=== PATIENT | female | born 1975 | race Caucasian/White ===

== ENCOUNTER 2017-11-10 14:14 | Outpatient (REF) | payer OTHER, SELFPAY | END 2017-11-10 14:15 | LOC: LBN 14:14 | PROVIDERS: Visit Provider Midwife | DX: Z36.85 Encounter for antenatal screening for Streptococcus B (principal); Z34.93 Encounter for supervision of normal pregnancy, unspecified, third trimester | CPT/HCPCS: 87081 ==

== ENCOUNTER 2017-11-18 12:06 | Outpatient (CLI) | payer OTHER, SELFPAY | END 2017-11-18 12:26 | PROVIDERS: PCP Nurse Practitioner Family; Visit Provider Midwife | DX: O09.513 Supervision of elderly primigravida, third trimester (principal); Z3A.36 36 weeks gestation of pregnancy | CPT/HCPCS: 59025 ==

== ENCOUNTER 2017-11-20 02:11 | Outpatient (CLI) | payer OTHER, SELFPAY ==
--- NOTE | 2017-11-20 10:29 | DI.US_ITS ---
SYMPTOMS/DIAGNOSIS: ELDERLY PRIMIGRAVIDA IN THIRD TRIMESTER OB ULTRASOUND: Many abnormalities cannot be diagnosed. A normal exam does not exclude a congenital anomaly. Radiology No. [id number] LMP: Exam Date: 11/20/17 [facility] wks days on EDC ([facility]) 12/15/17 Confirmed: HISTORY: ---- PREDICTED GESTATIONAL AGE NUMBER 36+3 weeks with a range of 35+3 weeks to 37+3 weeks. 1 Determined by___1STUS___LMP___HISTORY PLACENTA PRESENTATION Grade II-III Cephalic_X__ Anterior_X__Posterior___ Breech____ Right Left Transverse(head right___ Fundal___Low-lying___Previa___ Transverse(head left___ Varying BIOMETRY AMNIOTIC FLUID BPD: 94 mm 38 weeks Normal HC: 343 mm 39+4 weeks AC: 339 mm 37+5 weeks FL: 75 mm 38+1 weeks AMNIOTIC FLUID INDEX >26 WK CRL: mm weeks Cisterna Magna: mm CI: 85 RUQ: 2.8 LUQ: 1.9 Cerebellum: cm EFW: 3404 grams Percentile: 91st RLQ: 3.3 LLQ: 3.9 Total: 12.0 cm Composite AGE= 38+3 wks EDC by US: 12/01/17 BIOPHYSICAL PROFILE ANATOMY IDENTIFIED SCORE 0/2 Heart: 4-Chamber___Rate:BPM 160 LVOT: RVOT: Amniotic Fluid(>2cms)____ Stomach: Kidneys: Respirations (>30 secs) Bladder: Post. Fossa: Body Flex/Extension 3 vessel cord: Ventricles: cord insertion: Lips:____ Extremity Flex/Extension spinal morphology: Nose: Total Score= Palate: NS=not seen COMMENTS: The fetus is in cephalic position. The placenta is anterior. The biometric measurements correspond to 38 weeks 3 days. This is two weeks greater than expected based on previous dating. No abnormalities are identified. The amniotic fluid index appears normal at 12.0. The estimated weight is 3404 g, corresponding to the 91st percentile. IMPRESSION: size is measuring two weeks larger than dates.
== END 2017-11-20 02:31 ==
PROVIDERS: PCP Nurse Practitioner Family; Visit Provider Midwife
DX: O09.513 Supervision of elderly primigravida, third trimester (principal)
CPT/HCPCS: 76816

== ENCOUNTER 2017-11-21 11:06 | Outpatient (CLI) | payer OTHER, SELFPAY | END 2017-11-21 11:26 | PROVIDERS: PCP Nurse Practitioner Family; Visit Provider Advanced Practice Midwife | DX: O09.513 Supervision of elderly primigravida, third trimester (principal); Z3A.36 36 weeks gestation of pregnancy | CPT/HCPCS: 59025 ==

== ENCOUNTER 2017-11-25 10:55 | Outpatient (CLI) | payer OTHER, SELFPAY | END 2017-11-25 11:15 | PROVIDERS: PCP Nurse Practitioner Family; Visit Provider Midwife | DX: O09.513 Supervision of elderly primigravida, third trimester (principal); Z3A.37 37 weeks gestation of pregnancy | CPT/HCPCS: 59025 ==

== ENCOUNTER 2017-11-28 08:20 | Outpatient (CLI) | payer OTHER, SELFPAY | END 2017-11-28 08:40 | PROVIDERS: PCP Nurse Practitioner Family; Visit Provider Advanced Practice Midwife | DX: O09.513 Supervision of elderly primigravida, third trimester (principal); Z3A.38 38 weeks gestation of pregnancy | CPT/HCPCS: 59025 ==

== ENCOUNTER 2017-11-28 14:23 | Outpatient (CLI) | payer OTHER, SELFPAY | END 2017-11-28 14:43 | PROVIDERS: PCP Nurse Practitioner Family; Visit Provider Advanced Practice Midwife | DX: O09.513 Supervision of elderly primigravida, third trimester (principal); Z3A.38 38 weeks gestation of pregnancy ==

== ENCOUNTER 2017-12-02 11:06 | Outpatient (CLI) | payer OTHER, SELFPAY | END 2017-12-02 11:26 | PROVIDERS: PCP Nurse Practitioner Family; Visit Provider Advanced Practice Midwife | DX: O99.513 Diseases of the respiratory system complicating pregnancy, third trimester (principal); Z3A.38 38 weeks gestation of pregnancy | CPT/HCPCS: 59025 ==

== ENCOUNTER 2017-12-03 08:35 | Outpatient (CLI) | payer OTHER, SELFPAY | END 2017-12-03 08:55 | PROVIDERS: PCP Nurse Practitioner Family; Visit Provider Midwife | DX: O09.513 Supervision of elderly primigravida, third trimester (principal); Z3A.38 38 weeks gestation of pregnancy ==

== ENCOUNTER 2017-12-05 08:54 | Outpatient (CLI) | payer OTHER, SELFPAY | END 2017-12-05 09:14 | PROVIDERS: PCP Nurse Practitioner Family; Visit Provider Advanced Practice Midwife | DX: O09.513 Supervision of elderly primigravida, third trimester (principal); Z3A.38 38 weeks gestation of pregnancy | CPT/HCPCS: 59025 ==

== ENCOUNTER 2017-12-09 08:20 | Outpatient (CLI) | payer OTHER, SELFPAY | END 2017-12-09 08:40 | PROVIDERS: PCP Nurse Practitioner Family; Visit Provider Midwife | DX: O09.513 Supervision of elderly primigravida, third trimester (principal); Z3A.39 39 weeks gestation of pregnancy | CPT/HCPCS: 59025 ==

== ENCOUNTER 2017-12-12 09:30 | Outpatient (REF) | payer OTHER, SELFPAY | END 2017-12-12 09:50 | LOC: BCD 09:30 | PROVIDERS: PCP Nurse Practitioner Family; Visit Provider Advanced Practice Midwife | DX: O09.513 Supervision of elderly primigravida, third trimester (principal); Z3A.39 39 weeks gestation of pregnancy | CPT/HCPCS: 59025 ==

== ENCOUNTER 2017-12-16 11:59 | Inpatient (IN) | payer OTHER, SELFPAY ==
[2017-12-16] MEDS: Lactated Ringers 1,000 ML 500 ML IV (13:15)
[2017-12-16 14:08] LABS: HCT 42.9 % (36.0-46.0); HGB 14.5 g/dL (12.0-15.5); Mean Corp. HGB Concentration 33.8 g/dL (32.0-36.0); Mean Corpuscular Hemoglobin 31.9 pg (27.0-33.0); Mean Corpuscular Volume 94.3 fL (80-95); Mean Platelet Volume 11.2 fL (8.0-11.0); Platelet Count 156 x1000/uL (130-400); RBC 4.55 m/cumm (4.00-5.20); RBC Distribution Width 14.8 % (11.7-14.6); White Blood Cell Count 14.32 k/cumm (4.4-10.8)
[2017-12-16] MEDS: fentaNYL 100 MCG/2 ML VIAL EP (14:54)
[2017-12-16] MEDS: Bupivacaine 0.25% Pres-Free 10 ML VIAL EP (14:56)
[2017-12-16] MEDS: Bupivacaine 0.25% Pres-Free 30 ML VIAL (16:18)
[2017-12-16] MEDS: Lactated Ringers 1,000 ML 150 ML IV (17:47)
[2017-12-17] MEDS: Normal Saline Flush 10 ML SYR IVP ×2 (01:58→06:02)
--- NOTE | 2017-12-17 08:19 | PLAC_PTH ---
PATIENT: Christina Jones LOC: OBS U#:[id number] AGE/SX: 42/F ROOM: OBS.305 RE12/16/[address]: Karen Calhoun : 1975 BED: A DIS: 12/19/2017 SPEC #: [id number] RECD: 12/18/17 11:53 STATUS: JARONJody REQ #: [id number] ANGELIC: 12/17/17 08:[address]: Mina Cm DEPT: Surgical Specimen RECD BY: Emma Sampson ENTERED: 12/18/17 12:02 SP TYPE: PLAC OTHR DR: Karen Calhoun Kathryn Tissues: CHROMOSOME ANALYSIS PROFILE Procedures: CHROMOSOME ANALYSIS 15-20 CELLS CHROMOSOME ANALYSIS TISSUE CULTURE Comments: [id number]
[2017-12-17] MEDS: Oxytocin 10 UNITS/ML VIAL IM (08:30)
[2017-12-17] MEDS: Lidocaine 1% Pres-Free 5 ML VIAL 10 ML IJ (08:40)
[2017-12-17] MEDS: Ibuprofen 600 MG TAB PO ×2 (11:18→23:00)
[2017-12-17] MEDS: Hamamelis Leaf/Glycerin 100 EACH BOX PR (11:19)
[2017-12-18] MEDS: Ibuprofen 600 MG TAB PO ×2 (05:40→17:02)
[2017-12-18 06:57] LABS: HCT 28.8 % (36.0-46.0); HGB 9.6 g/dL (12.0-15.5); Mean Corp. HGB Concentration 33.3 g/dL (32.0-36.0); Mean Corpuscular Hemoglobin 31.9 pg (27.0-33.0); Mean Corpuscular Volume 95.7 fL (80-95); Mean Platelet Volume 11.6 fL (8.0-11.0); Platelet Count 124 x1000/uL (130-400); RBC 3.01 m/cumm (4.00-5.20); RBC Distribution Width 14.5 % (11.7-14.6); White Blood Cell Count 11.99 k/cumm (4.4-10.8)
[2017-12-19] MEDS: Ibuprofen 600 MG TAB PO (04:45)
== END 2017-12-19 21:07 | disposition home or self-care (01) | DRG 807 ==
PROVIDERS: Admitting Provider Midwife; PCP Nurse Practitioner Family; Visit Provider Midwife
DX: O48.0 Post-term pregnancy (principal); Z37.0 Single live birth; O63.1 Prolonged second stage (of labor); O70.1 Second degree perineal laceration during delivery; Z3A.40 40 weeks gestation of pregnancy; O99.824 Streptococcus B carrier state complicating childbirth; O90.81 Anemia of the puerperium; D64.9 Anemia, unspecified; O26.893 Other specified pregnancy related conditions, third trimester; Z67.11 Type A blood, Rh negative
CPT/HCPCS: 36415; 85027; 85461; 86850; 86900; 86901; 90384; 85460; 88233; 88262; E0602; G0378; J2540; J2590; J2790; J3010; J3490

== ENCOUNTER 2017-12-20 10:33 | Outpatient (CLI) | payer OTHER, SELFPAY | END 2017-12-20 10:53 | PROVIDERS: PCP Nurse Practitioner Family; Visit Provider Midwife | DX: Z34.93 Encounter for supervision of normal pregnancy, unspecified, third trimester (principal) | CPT/HCPCS: 36415; 86850; 86870 ==

== ENCOUNTER 2018-03-04 11:12 | Outpatient (REF) | payer OTHER, SELFPAY ==
--- NOTE | 2018-03-04 10:15 | PAPFT_PTH ---
PATIENT: Christina Jones LOC: NCN U#:[id number] AGE/SX: 42/F ROOM: RE03/04/[address]: Zehra Vieyra : 1975 BED: DIS: 03/04/2018 SPEC #: [id number] RECD: 03/04/18 12:57 STATUS: PARISH REQ #: [id number] ANGELIC: 03/04/18 10:[address]: Zehra Vieyra DEPT: [facility] Cytology RECD BY: Emma Sampson ENTERED: 03/04/18 12:57 SP TYPE: PAPFT OTHR DR: Karen Calixto Tissues: 1 - CX/ENDOCX FOR PAP SMEARS Procedures: PAP THIN PREP/[facility] Screening HPV DNA PROBE Comments: [id number]
[2018-03-04 23:00] LABS: Cholesterol 213 mg/dL (50-200); HDL Cholesterol 59 mg/dL (40-60); LDL CHOLESTEROL 135 mg/dL (<100); Triglyceride 134 mg/dL (30-150)
== END 2018-03-04 11:32 ==
LOC: NCHCN 11:12
PROVIDERS: PCP Nurse Practitioner Family; Visit Provider Nurse Practitioner
DX: Z00.00 Encounter for general adult medical examination without abnormal findings (principal); Z13.220 Encounter for screening for lipoid disorders; Z12.4 Encounter for screening for malignant neoplasm of cervix; Z11.51 Encounter for screening for human papillomavirus (HPV); Z01.419 Encounter for gynecological examination (general) (routine) without abnormal findings
CPT/HCPCS: 80061; 83721; 88142; 87624

== ENCOUNTER 2019-05-12 01:41 | Outpatient (CLI) | payer OTHER, SELFPAY ==
--- NOTE | 2019-05-12 | DI.MAMMO_ITS ---
EXAM: US BREAST RT COMPLETE Diagnostic bi mammo CLINICAL HISTORY: LUMP RT BREAST N63.10 TECHNIQUE: Ultrasound performed using standard protocol. COMPARISON: No exams were available for comparison FINDINGS: Bilateral mammogram: The breasts are composed of scattered fibroglandular densities, breast density category B. No suspicious masses or suspicious microcalcifications are seen. Right breast ultrasound: The inferior portion of the right breast was scanned in the area of the brent ent's concern. No cyst or mass is seen. There are no dilated ducts or evidence of skin edema. IMPRESSION: BI-RADS category 1, breast density category B, negative mammogram and negative right breast ultrasoun d. Annual screening mammography is recommended. DATA REPOSITORY:
== END 2019-05-12 02:01 ==
PROVIDERS: PCP Nurse Practitioner Family; Visit Provider Nurse Practitioner Family
DX: N63.10 Unspecified lump in the right breast, unspecified quadrant (principal)
CPT/HCPCS: 76642; 77062; 77066; G0279

== ENCOUNTER 2020-05-24 03:58 | Outpatient (CLI) | payer OTHER, SELFPAY ==
[2020-05-24 09:36] LABS: TSH (W/Ref FT4) 2.55 uIU/mL (0.36-3.74)
[2020-05-24 18:15] LABS: FSH 18.1 mIU/mL (See Note); LH 12.5 mIU/mL (See Note)
[2020-05-24 18:18] LABS: Prolactin 7.1 ng/mL (See Table)
[2020-05-25 12:58] LABS: Antimullerian Hormone 0.19 ng/mL (0.03-5.5)
== END 2020-05-24 03:59 | disposition home or self-care (01) ==
LOC: LBO 03:59
PROVIDERS: PCP Nurse Practitioner Family; Visit Provider Nurse Practitioner Women's Health
DX: N97.8 Female infertility of other origin (principal); Z31.9 Encounter for procreative management, unspecified; N91.2 Amenorrhea, unspecified
CPT/HCPCS: 36415; 83001; 83002; 83520; 84146; 84443

== ENCOUNTER 2020-08-09 04:31 | Outpatient (CLI) | payer OTHER, SELFPAY ==
[2020-08-09 15:07] LABS: Abs Immature Grans 0.04 10^3/uL (0.0-0.06); Absolute Basophil Count 0.04 10^3/uL (0.0-0.2); Absolute Eosinophil Count 0.08 10^3/uL (0.0-0.7); Absolute Lymphocyte Count 1.79 10^3/uL (1.2-3.4); Absolute Monocyte Count 0.75 10^3/uL (0.1-0.8); Basophils % 0.3; Eosinophils % 0.7; HCT 43.7 % (36.0-46.0); HGB 15.3 g/dL (11.2-15.7); Immature Grans % 0.3; Lymphocytes % 14.8; MCH 31.4 pg (27.0-33.0); MCV 89.5 fL (80-95); MPV 11.5 fL (8.0-11.0); Monocytes % 6.2; Neutrophils % 77.7; Nucleated RBC 0 %; Platelet Count 173 10^3/uL (130-400); RBC 4.88 10^6/uL (3.93-5.22); RDW 12.2 % (11.7-14.6); RDW-SD 40.2 fL; WBC 12.07 10^3/uL (4.4-10.8)
[2020-08-09 15:11] LABS: Absolute Neutrophil Count 9.38 10^3/uL (1.2-6.7)
[2020-08-09 15:59] LABS: TSH (W/Ref FT4) 1.84 uIU/mL (0.36-3.74)
[2020-08-10 09:49] LABS: Hepatitis C Ab w Rflx HCV PCR Negative (Negative)
[2020-08-10 10:03] LABS: HIV-1/2 Ag & Ab Screen Negative (Negative)
[2020-08-10 10:06] LABS: Varicella IgG Antibody Positive (See Note)
[2020-08-10 10:09] LABS: Rubella IgG Ab (UVM) Positive (See Note)
[2020-08-10 11:23] LABS: Hepatitis B Surface Ag Negative (Negative)
[2020-08-11 10:30] LABS: Syphilis Total Ab w/Reflex Nonreactive (Nonreactive)
== END 2020-08-09 04:32 | disposition home or self-care (01) ==
LOC: LBO 04:31
PROVIDERS: PCP Nurse Practitioner Family; Visit Provider Advanced Practice Midwife
DX: Z34.91 Encounter for supervision of normal pregnancy, unspecified, first trimester (principal); Z11.4 Encounter for screening for human immunodeficiency virus [HIV]; Z11.59 Encounter for screening for other viral diseases; Z01.84 Encounter for antibody response examination; Z3A.11 11 weeks gestation of pregnancy
CPT/HCPCS: 36415; 86787; 86803; 86850; 86900; 86901; 87340; 87389; 84443; 85025; 86762; 86780

== ENCOUNTER 2020-08-09 20:01 | Outpatient (REF) | payer OTHER, SELFPAY ==
[2020-08-09 17:00] LABS: *AMPHETAMINES SCREEN URINE Negative (Negative); *BARBITURATES SCREEN URINE Negative (Negative); *BENZODIAZEPINES SCREEN URINE Negative (Negative); Cannabinoids THC Negative (Negative); Cocaine Screen,Urine Negative (Negative); METHADONE URINE SCREEN Negative (Negative); OPIATES URINE SCREEN Negative (Negative); Tricyclic Antidepressants Negative (Negative)
[2020-08-10 14:37] LABS: Chlamydia Result Negative (Negative); GC Result Negative (Negative)
[2020-08-16 07:18] LABS: Buprenorphine Negative ng/mL (Cutoff: 5.0); Norbuprenorphine Negative ng/mL (Cutoff: 2.5)
== END 2020-08-09 20:02 | disposition home or self-care (01) ==
LOC: LBN 20:01
PROVIDERS: PCP Nurse Practitioner Family; Visit Provider Advanced Practice Midwife
DX: Z34.91 Encounter for supervision of normal pregnancy, unspecified, first trimester (principal); Z11.3 Encounter for screening for infections with a predominantly sexual mode of transmission
CPT/HCPCS: 80307; 87491; 87591; 87086

== ENCOUNTER 2020-12-06 00:44 | Outpatient (CLI) | payer OTHER, SELFPAY ==
[2020-12-06 09:44] LABS: HCT 40.3 % (36.0-46.0); HGB 13.6 g/dL (11.2-15.7); MCH 31.5 pg (27.0-33.0); MCHC 33.7 % (32.0-36.0); MCV 93.3 fL (80-95); MPV 10.8 fL (8.0-11.0); Platelet Count 142 10^3/uL (130-400); RBC 4.32 10^6/uL (3.93-5.22); RDW 12.9 % (11.7-14.6); RDW-SD 44.1 fL; WBC 8.89 10^3/uL (4.4-10.8)
[2020-12-06 11:20] LABS: Glucose,1 Hr (Glucola) 132 mg/dL (80-140)
== END 2020-12-06 00:45 | disposition home or self-care (01) ==
LOC: LBO 00:45
PROVIDERS: Advanced Practice Midwife; PCP Nurse Practitioner Family; Visit Provider Advanced Practice Midwife
DX: O36.0130 Maternal care for anti-D [Rh] antibodies, third trimester, not applicable or unspecified (principal); O09.523 Supervision of elderly multigravida, third trimester; Z3A.28 28 weeks gestation of pregnancy
CPT/HCPCS: 36415; 82950; 85027; 86850; 90384

== ENCOUNTER 2021-02-05 10:50 | Outpatient (CLI) | payer OTHER, SELFPAY ==
[2021-02-05 11:53] VITALS: BP 126/68; PULSE 72; TEMP 36.3
--- NOTE | 2021-02-05 12:46 | W.OBNST ---
Date of service: 02/05/21 Time of Service: 12:46 NST Evaluation Reason for NST Reasons for Nonstress Test: ADVANCED MATERNAL AGE Gestational Age Gestational Age in Weeks and Days: 37 Weeks and 1Days Test and Monitor Explained Test/Monitor Explained: Test Explained, Monitor Explained and Patient Verbalized Understanding Vital Signs Blood Pressure: 126/68 Pulse: 72 Temperature: 97.4 F NST Information Date on Monitor: 02/05/21 Time on Monitor: 11:46 Date off Monitor: 02/05/21 Time off Monitor: 12:25 Total Time on Monitor: 39 NST Interventions: None Contraction Frequency: none NST Evaluation Patient States Movement: Present FHR Baseline: 135 Variability: Moderate 6-25 bpm Accelerations: 15x15 Decelerations: None NST Results: Reactive Note NST Note Note: NST for AMA >40, returns this Friday for repeat NST Plan for NST/KATIE the following week (38 wks) NST Reviewed and Verified by: Adelia Hayden
[2021-02-05 12:47] VITALS: BP 126/68; PULSE 72; TEMP 36.3
== END 2021-02-05 12:30 | disposition home or self-care (01) ==
PROVIDERS: PCP Nurse Practitioner Family; Visit Provider Advanced Practice Midwife
DX: O09.523 Supervision of elderly multigravida, third trimester (principal); Z3A.37 37 weeks gestation of pregnancy
CPT/HCPCS: 59025

== ENCOUNTER 2021-02-05 16:36 | Outpatient (REF) | payer OTHER, SELFPAY ==
[2021-02-05 18:27] LABS: *AMPHETAMINES SCREEN URINE Negative (Negative); *BARBITURATES SCREEN URINE Negative (Negative); *BENZODIAZEPINES SCREEN URINE Negative (Negative); Cannabinoids THC Negative (Negative); Cocaine Screen,Urine Negative (Negative); METHADONE URINE SCREEN Negative (Negative); OPIATES URINE SCREEN Negative (Negative)
[2021-02-05 18:31] LABS: Tricyclic Antidepressants Negative (Negative)
[2021-02-11 10:28] LABS: Buprenorphine Negative ng/mL (Cutoff: 5.0)
== END 2021-02-05 16:37 | disposition home or self-care (01) ==
LOC: LBN 16:36
PROVIDERS: PCP Nurse Practitioner Family; Visit Provider Advanced Practice Midwife
DX: O09.513 Supervision of elderly primigravida, third trimester
CPT/HCPCS: 80307; 87081

== ENCOUNTER 2021-02-09 10:06 | Outpatient (CLI) | payer OTHER, SELFPAY ==
[2021-02-09 10:29] VITALS: BP 102/73; PULSE 67; TEMP 36.9
[2021-02-09 10:30] VITALS: BP 102/73; PULSE 67
--- NOTE | 2021-02-09 10:39 | W.OBNST ---
Date of service: 02/09/21 Time of Service: 10:39 NST Evaluation Reason for NST Reasons for Nonstress Test: ADVANCED MATERNAL AGE Gestational Age Gestational Age in Weeks and Days: 37 Weeks and 5Days Test and Monitor Explained Test/Monitor Explained: Test Explained, Monitor Explained and Patient Verbalized Understanding Vital Signs Blood Pressure: 102/73 Pulse: 67 Temperature: 98.4 F Urine Results Urine Protein: Negative Urine Ketones: Negative Urine Glucose: Negative Urine Blood: Negative NST Information Date on Monitor: 02/09/21 Time on Monitor: 10:07 NST Evaluation Patient States Movement: Present FHR Baseline: 150 Variability: Moderate 6-25 bpm Accelerations: 15x15 Decelerations: None NST Results: Reactive Note NST Note Note: Christina presents for NST due to AMA at term. No concerns. NST is reactive and reassuring. Will return in 1 week for NST and KATIE. NST Reviewed and Verified by: Louise Summers
[2021-02-09 10:40] VITALS: BP 102/73; PULSE 67; TEMP 36.9
== END 2021-02-09 10:45 | disposition home or self-care (01) ==
LOC: BCD 10:06 → OBS 10:12
PROVIDERS: PCP Nurse Practitioner Family; Visit Provider Advanced Practice Midwife
DX: O09.523 Supervision of elderly multigravida, third trimester (principal); Z3A.37 37 weeks gestation of pregnancy
CPT/HCPCS: 59025

== ENCOUNTER 2021-02-15 06:54 | Outpatient (CLI) | payer OTHER, SELFPAY ==
[2021-02-15 11:24] VITALS: BP 119/64; PULSE 67; TEMP 36.9
[2021-02-15 11:44] VITALS: BP 119/64; PULSE 67
--- NOTE | 2021-02-15 14:18 | W.OBNST ---
Date of service: 02/15/21 Time of Service: 14:19 NST Evaluation Reason for NST Reasons for Nonstress Test: ADVANCED MATERNAL AGE Gestational Age Gestational Age in Weeks and Days: 38 Weeks and 4Days Test and Monitor Explained Test/Monitor Explained: Test Explained, Monitor Explained and Patient Verbalized Understanding Vital Signs Blood Pressure: 119/64 Pulse: 67 Temperature: 98.4 F NST Information Date on Monitor: 02/15/21 Time on Monitor: 11:25 Date off Monitor: 02/15/21 Time off Monitor: 12:00 Total Time on Monitor: 35 NST Interventions: None NST Evaluation Patient States Movement: Present FHR Baseline: 145 Variability: Moderate 6-25 bpm Accelerations: 15x15 Decelerations: None NST Results: Reactive Note KATIE Results of KATIE: KATIE=21 cm, cephalic presentation, fundal placenta NST Note Note: Next NST scheduled for 02/22, IOL for AMA scheduled for 02/26 NST Reviewed and Verified by: Adelia Hayden
[2021-02-15 14:20] VITALS: BP 119/64; PULSE 67; TEMP 36.9
== END 2021-02-15 12:23 | disposition home or self-care (01) ==
LOC: BCD 06:54 → OBS 11:22
PROVIDERS: PCP Nurse Practitioner Family; Visit Provider Advanced Practice Midwife
DX: O09.523 Supervision of elderly multigravida, third trimester (principal); Z3A.38 38 weeks gestation of pregnancy
CPT/HCPCS: 59025

== ENCOUNTER 2021-02-22 07:29 | Outpatient (CLI) | payer OTHER, SELFPAY ==
[2021-02-22 12:44] VITALS: BP 143/72; PULSE 75; TEMP 37.1
[2021-02-22 13:03] VITALS: BP 143/72; PULSE 75
[2021-02-22 13:53] VITALS: BP 143/72; PULSE 75; TEMP 37.1
--- NOTE | 2021-02-22 13:53 | W.OBNST ---
Date of service: 02/22/21 Time of Service: 13:53 NST Evaluation Reason for NST Reasons for Nonstress Test: ADVANCED MATERNAL AGE Gestational Age Gestational Age in Weeks and Days: 39 Weeks and 4Days Test and Monitor Explained Test/Monitor Explained: Test Explained, Monitor Explained and Patient Verbalized Understanding Vital Signs Blood Pressure: 143/72 Pulse: 75 Temperature: 98.8 F NST Information Date on Monitor: 02/22/21 Time on Monitor: 12:48 Date off Monitor: 02/22/21 Time off Monitor: 13:29 Total Time on Monitor: 41 NST Interventions: PO Hydration NST Evaluation Patient States Movement: Present FHR Baseline: 145 Variability: Moderate 6-25 bpm Accelerations: 15x15 Decelerations: None NST Results: Reactive Note NST Note Note: Cvx 2/50% vtx -3 intact membranes IOL for AMA scheduled for 02/26 NST Reviewed and Verified by: Adelia Hayden
== END 2021-02-22 13:37 | disposition home or self-care (01) ==
LOC: BCD 07:36 → OBS 12:42
PROVIDERS: PCP Nurse Practitioner Family; Visit Provider Advanced Practice Midwife
DX: O09.523 Supervision of elderly multigravida, third trimester (principal); Z3A.39 39 weeks gestation of pregnancy
CPT/HCPCS: 59025

== ENCOUNTER 2021-02-26 08:55 | Inpatient (IN) | payer OTHER, SELFPAY ==
[2021-02-27] VITALS (87 sets, daily range): BP systolic 112–159; BP diastolic 55–73; PULSE 60–78; RESP 16–18; TEMP 36.8–37.1; O2SAT 96–100; BMI 33.0
[2021-02-27 10:18] LABS: Source Nasal/Nares
--- NOTE | 2021-02-27 11:52 | HPE_ITS ---
Date of service: 02/27/21 Time of Service: 10:52 Assessment and Plan Assessment and plan (1) Advanced maternal age during : Status: Acute (2) 40 weeks gestation of : Status: Acute (3) Encounter for induction of labor: Status: Acute Assessment and plan: A: 45 yo @ 40+3 wks Scheduled IOL today for AMA Category 1 tracing, KATIE was 21 on 02/15 GBS+, Rh neg, rec'ed RhoGam at 28 wks Low risk for SD, moderate risk for PPH d/t induction head not in pelvis but in LLQ and OP upon admission, hand above head near cvx P: Consult with Dr. Christensen, will hold misoprostel at this time Pt to ambulate, recheck position in 2-3 hrs Once position confirmed cephalic, will initiate cervical ripening Plan epidural and PCN prophylaxis when labor starts OB-HPI Labor/Delivery History of Present Illness Reason for Visit: Induction for Advanced Maternal Age at term Chief Complaint: Scheduled Induction of Labor Indication for Induction: Other (AMA, age 45, now 40+2 wks). MANUEL Calculator Estimated Delivery Date Method Current WG Current Estimate 02/25/21 LMP (Certain) 40w 2d Other Estimates 02/25/21 Ultrasound #1 40w 2d History of Present Expected Delivery Route/Plan - CNM FOB/ - Fadi Jones planning for regional anesthesia BG- Mary James GBS POSITIVE, plan PCN prophylaxis in labor Specific Issues/Plan 1. AMA (age 45), offered level 2 sono w/MFM consult at [facility], pt will discuss with : declines this offer 09/06/20 1a. Discussed early IOL. 2. First child w/question of Downs (likely), high functioning with no clear markers; ?mosaicism.-Declines [place] testing: lab is out of network, tests not covered. Declination form signed. 2a. Known CF carrier negative. Declines [facility] screen 2b. considering SMA but due to out of network she will discuss with . Update: declined 5. Is COVID vaccinated 6. May have had PPH with first , will check delivery record 6a. Reviewed delivery record-EBL 400 cc. Christina reports large clot passed later I.V. access in labor discussed. 7. Rh neg, RhoGam at 28 wks- received 12/06/20 8. Complete previa, no bleeding, precautions reviewed including pelvic rest, repeat US at 28 weeks- previa: RESOLVED 12/13, tip of posterior placenta 3.8 cm from os 9. Was thinking tubal ligation if needed scheduled C/S, otherwise plan is vasectomy. Declines appt for TL consent 01/03 9a. At 35 wk visit pt requests to sign BTL consent form just in case of emergency C/S. Done, copy given to pt. Review of Systems All systems reviewed & are unremarkable except as noted in HPI and below Constitutional Constitutional: Reports system reviewed and no additional complaints, except as documented Eyes Eyes: Reports system reviewed and no additional complaints, except as documented ENT Ears, Nose, Mouth, and Throat: Reports system reviewed and no additional complaints, except as documented Cardiovascular Cardiovascular: Reports system reviewed and no additional complaints, except as documented Respiratory Respiratory: Reports system reviewed and no additional complaints, except as documented Gastrointestinal Gastrointestinal: Reports system reviewed and no additional complaints, except as documented Genitourinary Genitourinary: Reports system reviewed and no additional complaints, except as documented Musculoskeletal Musculoskeletal: Reports system reviewed and no additional complaints, except as documented Comments: painless enlargement on left thigh, pre-dates Integumentary/Breasts Skin/Breast: Reports system reviewed and no additional complaints, except as documented Neurologic Neurologic: Reports system reviewed and no additional complaints, except as documented Psychiatric Psychiatric: Reports system reviewed and no additional complaints, except as documented PFSH All Active Problems (Updated 02/27/21 @ 12:02 by Adelia Hayden) Encounter for induction of labor (Acute) 40 weeks gestation of (Acute) Positive GBS test (Acute) Placenta previa (Acute) (Acute) Advanced maternal age during (Acute) Infertility (Acute) Rh negative state in antepartum period (Acute 05/19/17) Mass of left thigh (Acute) Medical History (Updated 02/27/21 @ 12:02 by Adelia Hayden) 11 weeks gestation of Amenorrhea Social History (Updated 11/27/17 @ 09:52 by Erika Nugent LPN) Smoking/Tobacco Use Status: Never Smoking risk assessment performed?: Yes Alcohol Intake: never Substance use type: does not use Household members: spouse current occupation: homemaker Pets and animals: Yes (2 dogs) Pets and animals: dog(s) Do you think of yourself as: straight/heterosexual Current gender identity: female [place]/Sabianism: Church Special lee ann needs: No Female Reproductive History Menstrual control method: none History History 2 Para 1 Hx # Term Pregnancies 1 Multiple births 0 Hx # Pregnancies 0 Ectopic pregnancies 0 AB induced 0 Hx Number of Living Children 1 AB spontaneous 0 Past Pregnancies Del. Date GA/Weeks # Outcome Route Wgt Sex Labor Lgth Anesthes ia Location Prov Complic 12/17/17 40 No Successful vaginal 8 lb Male 24 hrs regional [facility] - [facility] ([place]) Delivery Date: 12/17/17 long labor but pushed only 1 hr, epidural, pit aug, heavy bleeding, 2nd degree tear, Storm Lyman; GBS treated with antibiotics. Louise Dixon Allergies and Home Medications Allergies Allergy/AdvReac Type Severity Reaction Status Date / Time No Known Allergies Allergy Unverified 02/05/21 11:23 Home Medications Medication Instructions Recorded Confirmed Type [id number] acid 1 ea PO DAILY 04/17/17 02/22/21 History [ Multi Tablet] Exam Physical Exam Vital signs: Temp Pulse Resp BP Pulse Ox 98.4 F 64 16 124/70 99 02/27/21 10:52 02/27/21 10:52 02/27/21 10:52 02/27/21 10:56 02/27/21 10:52 Vital Signs Reviewed: Yes Constitutional Constitutional: no acute distress and cooperative Detailed Labor and Delivery Exam Dilation: 2 Effacement (%): 50 station: -4 (head is not engaged in pelvis) Cervix position: posterior Consistency: medium PILLAI Score(Cervical Ripeness Score): 3 Amniotic Membrane Status: Intact Contraction Frequency(min): irregular, infrequent Contraction Intensity: Mild Fetus A Heart Rate Baseline: 140 Monitor Accelerations: 15 X 15 Monitor Decelerations: None Variability: Moderate (6-25 BPM) Categories: Category I Est. Weight: 218 lb 12 oz Est. Weight: 3500 gms HEENT Exam HEENT Exam: Normal Neck Exam Neck Exam: Normal Chest/Brest/Axilla Exam Chest Exam: Normal Breast Exam Breast Exam: Not Done Respiratory Exam Respiratory Exam: Normal Cardiovascular Exam Cardiovascular Exam: Normal Abdominal Exam Abdominal Exam: Normal (Gravid, nontender) Rectal Exam Rectal Exam: Normal Exam Exam: Normal Extremities Exam Extremities Exam: Normal Back/Spine/Pelvis Exam Back Exam: Normal Pelvis Adequate: Yes (proven to 3635 gms) Skin Exam Skin Exam: Normal Neurological Exam Neurological Exam: Normal Psychiatric Exam Psychiatric Exam: Normal Results Results Group Beta Strep: Positive Blood Type: A- Rubella Status: Immune Varicella Immunity: Immune Risk Assessment Risk for Shoulder Dystocia Historical/Initial OB: NEGATIVE FOR: Pelvic Abnormality, Pre- BMI>30, Previous Shoulder Dystocia or Previous Macrosomia 40 Weeks: NEGATIVE FOR: EFW> 4500 gms, Maternal Weight Gain >40lb or Post Dates Increased Risk?: No Counseling: proven to 3635 gms Delivery Plan @ 36wks: vaginal delivery anticipated. Delivery Plan @ 40 wks: IOL for AMA status after 40 completed weeks, anticipate Risk for Pre-Eclampsia Daily Dose ASA Indicated: No Date Initiated/Initials: 08/09/20/krystle Yes, if one or more: NEGATIVE FOR: Hx Pre-E/Gest HTN, Chronic HTN, Multiple Gestation, Pre-gestational DM, Renal Disease, Systemic Lupus or APA Syndrome Yes, if 2 or more: POSITIVE FOR: Age>= 35 yrs; NEGATIVE FOR: Nulliparity, >10yr btwn pregnancies, BMI>30, ethinicty, Mother/Sister w/ Pre-E or Previous IUGR Risk for Post- Hemorrhage Initial: POSITIVE FOR: Previous PPH; NEGATIVE FOR: Multiple Gestation, Known Clotting Deficiency, Grand Multiparity or Anticoagulation At Risk?: Yes (moderately elevated risk for PPH due to induction) Counseled re: Active Management: Yes Date/Initials: 02/05/21:LESLIE Risks Reviewed Risks Reviewed Upon Admission: Yes
[2021-02-27 12:19] LABS: COVID-19 PCR Negative (Negative)
--- NOTE | 2021-02-27 12:57 | W.PM.OBNL1 ---
Date of service: 02/27/21 Time of Service: 12:58 Informed Consent Informed Consent: Induction of Labor (cervical ripening for AMA) Pelvic Exam Position: LOP Vaginal Exam Presentation: Cephalic Comments: Pt has been ambulating and keeping upright positions for past 2-3 hrs, bedside ultrasound repeated and head position is now LOP midline dipping into pelvis, hand visible at her neck/cheek. Assessment and Plan Assessment and plan (1) Encounter for induction of labor: Status: Acute Assessment and plan: A: cephalic presentation confirmed by bedside ultrasound LOP with hand at neck/cheek P: Begin misoprostel cervical ripening Will establish IV access and draw admission labs Objective Temp Pulse Resp BP Pulse Ox 98.4 F 64 16 124/70 99 02/27/21 10:52 02/27/21 10:52 02/27/21 10:52 02/27/21 10:56 02/27/21 10:52 Laboratory Results COVID-19 Source Nasal/Nares 02/27/21 09:40 SARS-CoV-2 (PCR) Negative (Negative) 02/27/21 09:40 Subjective Patient Reports: No new Complaints
[2021-02-27] MEDS: miSOPROStol 25 MCG TAB PO ×2 (13:16→15:36)
[2021-02-27 13:27] LABS: MCH 31.9 pg (27.0-33.0); MCHC 33.3 % (32.0-36.0); MCV 95.7 fL (80-95); MPV 11.6 fL (8.0-11.0); Platelet Count 133 10^3/uL (130-400); RBC 4.39 10^6/uL (3.93-5.22); RDW 13.7 % (11.7-14.6); RDW-SD 47.9 fL; WBC 9.77 10^3/uL (4.4-10.8)
--- NOTE | 2021-02-27 17:31 | W.PM.OBNL1 ---
Date of service: 02/27/21 Time of Service: 17:31 Pelvic Exam Dilation: 3 Effacement (%): 80 station: -4 Position: LOP Cervix Position: mid Consistency: medium Vaginal Exam Presentation: Cephalic Pooling: Positive Comments: Gross SROM @ 1712 Contractions Monitor Mode: External Contraction Frequency(min): irregular Contraction Duration(sec): 50-70 Intensity: Mild/Moderate Fetus A Monitor: External (US) Heart Rate Baseline: 145 Variability: Moderate (6-25 BPM) Categories: Category I Amniotic Membrane Status: Ruptured Rupture Method: Spontaneous Amniotic Fluid: Clear Amount: large Date of Membrane Rupture: 02/27/21 Time of Membrane Rupture: 17:12 Assessment and Plan Assessment and plan (1) Encounter for induction of labor: Status: Acute Assessment and plan: A: multipara AMA induction via cervical ripening Latent phase labor Gross SROM large amt clear fluid Cvx change to 3/80%, vtx-4 P: Begin GBS prophylaxis Notify MACHINE III COREMAKER plan for epidural anesthesia when labor more active Hold misoprostel, expectant management & obs for further progress Intermittent auscultation and regular diet at this time Objective Vital Signs Reviewed: Yes Objective Narrative Objective Narrative: Pt took her 2nd 25 mcg dose of misoprostel PO @ 1530 Category 1 tracing throughout Tolerating PO intake well Up to BR when SROM occured FHT remains category 1, IV access in place Pt appears comfortable at this time Subjective Interval history since last seen: Contractions were becoming stronger and more uncomfortable. After her water broke, contractions and pressure decreased and currently she feels better. Options of intrathecal and epidural reviewed with pt, no need for pain management right now but pt anticipates requesting anesthesia once active labor is established. Results Hemoglobin/Hematocrit:
[2021-02-27] MEDS: Penicillin G POT. 5,000,000 UNITS in Normal Saline 100 ML 200 UNITS IVPB (17:59)
--- NOTE | 2021-02-27 19:11 | NUR.NOTE ---
Nursing Note: SBAR recieved from Maryam. Care assumed. Pt requesting epidural. CNM notifying anesthesia. Novii monitor trurned back on and is tracing FHR. Pt reports feeling contractions q 5 min.
--- NOTE | 2021-02-27 19:26 | W.ANESPRE ---
General Info Date of Service Date Performed: 02/27/21 Height: 5 ft 10 in Weight: 104.326 kg Body Mass Index (BMI): 33.0 Meds Allergies and Home Medications Allergies Allergy/AdvReac Type Severity Reaction Status Date / Time No Known Allergies Allergy Unverified 02/05/21 11:23 Home Medication Medication Instructions Recorded [id number] acid 1 ea PO DAILY 04/17/17 [ Multi Tablet] Current Visit Medications: Current Medications Generic Name Dose Route Start Last Admin Trade Name Freq PRN Reason Stop Dose Admin Fentanyl/Ropivacaine 200 ml 02/27/21 19:15 Fentanyl/Ropivacaine 2 Mcg/Ml And 0.1% 200 Ml Cadd Cassette EP DIRECTED SHANT Ringer's Solution/ Ringer's 1,000 mls @ 200 mls/hr 02/26/21 09:00 02/27/21 17:59 Solution IV 200 mls/hr INFUSION SHANT Administration Sodium Chloride 500 mls @ 0 mls/hr 02/26/21 08:55 Saline 500ml Bag IV PRN PRN As Directed Penicillin G Potassium 3,000, 50 mls @ 100 mls/hr 02/28/21 00:00 000 units/ Sodium Chloride IVPB Q4H SHANT Ringer's Solution 500 mls @ 500 mls/hr 02/27/21 19:08 IV 02/27/21 20:07 BOLUS ONE IV Miscellaneous Supplies 1 each 02/26/21 09:00 Iv Access IV DIRECTED SHANT Sodium Chloride 0 ml 02/26/21 08:55 Normal Saline Flush 10 Ml Syr IVP PRN PRN Terbutaline Sulfate 0.25 mg 02/26/21 08:55 Terbutaline 1 Mg/Ml Vial SC PRN PRN PFSH Active Problems Active Problems: Problem Status Onset Code Encounter for induction of labor Z34.90 40 weeks gestation of Z3A.40 Positive GBS test B95.1 Placenta previa O44.00 Z34.90 Advanced maternal age during Infertility Rh negative state in antepartum period 05/19/17 O09.899, Z67.91 Mass of left thigh R22.42 Medical History Medical History (Updated 02/27/21 @ 12:02 by Adelia Hayden) 11 weeks gestation of Amenorrhea Tobacco Smoking/Tobacco Use Status: Never Alcohol Alcohol Intake: never Substance Use Substance use type: does not use Prental History History 2 Para 1 Hx # Term Pregnancies 1 Multiple births 0 Hx # Pregnancies 0 Ectopic pregnancies 0 AB induced 0 Hx Number of Living Children 1 AB spontaneous 0 Past Pregnancies Del. Date GA/Weeks # Outcome Route Wgt Sex Labor Lgth Anesthesia Location Prov Complic 12/17/17 40 No Successful vaginal 3628.739 g Male [facility] Delivery Date: 12/17/17 long labor but pushed only 1 hr, epidural, pit aug, heavy bleeding, 2nd degree tear, Storm Lyman; GBS treated with antibiotics. Louise Dixon Vital Signs and Lab Results Vital Signs Most Recent Vital Signs in EMR: Most Recent Vital Signs Temp Pulse Resp BP Pulse Ox 37.0 C 76 18 133/66 99 02/27/21 19:13 02/27/21 19:13 02/27/21 19:13 02/27/21 19:13 02/27/21 10:52 Lab Results Result Diagrams: 02/27/21 13:18 Blood Type / Crossmatch: Patient ABO/Rh A Negative 02/27/21 13:18 02/27/21 Antibody Screen NEGATIVE 02/27/21 13:18 02/27/21 Complete Blood Count: White Blood Count 9.77 10^3/uL (4.4-10.8) 02/27/21 13:18 02/27/21 Red Blood Count 4.39 10^6/uL (3.93-5.22) 02/27/21 13:18 02/27/21 Hemoglobin 14.0 g/dL (11.2-15.7) 02/27/21 13:18 02/27/21 Hematocrit 42.0 % (36.0-46.0) 02/27/21 13:18 02/27/21 Platelet Count 133 10^3/uL (130-400) 02/27/21 13:18 02/27/21 Complete Metabolic Panel: No Data to Display Liver Function Panel: No Data to Display Coagulation Panel: No Data to Display Cardiac Panel: No Data to Display Arterial Blood Gas: No Data to Display Venous Blood Gas: No Data to Display Pancreas Panel: No Data to Display Thyroid Panel: No Data to Display Infectious Disease: Coronavirus (COVID-19)(PCR) Negative (Negative) 02/27/21 09:40 02/27/21 Coronavirus 2019 Source Nasal/Nares 02/27/21 09:40 02/27/21 Blood Cultures: No Data to Display Toxicology Panel: Urine Amphetamines Screen Negative (Negative) 02/05/21 11:40 02/05/21 Urine Benzodiazepines Screen Negative (Negative) 02/05/21 11:40 02/05/21 Urine Barbiturates Screen Negative (Negative) 02/05/21 11:40 02/05/21 Urine Cocaine Screen Negative (Negative) 02/05/21 11:40 02/05/21 Urine Methadone Screen Negative (Negative) 02/05/21 11:40 02/05/21 Urine Opiates Screen Negative (Negative) 02/05/21 11:40 02/05/21 Ur Tricyclic Antidepressants Screen Negative (Negative) 02/05/21 11:40 02/05/21 Ur Tetrahydrocannabinol (THC) Scrn Negative (Negative) 02/05/21 11:40 02/05/21 Panel: No Data to Display Anesthesia Assessment and Plan Anesthesia History Personal History: No History of Anesthesia Complications Family History: No Family History of Anesthesia Complications Exercise Tolerance Exercise Tolerance: Metabolic Equivalents>4 Pertinent Negatives Pertinent Negatives: No Symptoms of GERD, No Major Cardiovascular Symptoms or Complaints, No Major Pulmonary Symptoms or Complaints and No History of CVA/TIA Cardiac & Pulmonary Exam Cardiac Exam: Normal S1/S2 Heart Sounds Pulmonary Exam: Clear Bilateral Breath Sounds Implantable Cardiac Device Does patient have a Pacemaker or an ICD?: No Airway Exam Known Difficult Airway: No Mallampati Class: 2 Mouth Opening: Normal (> 3cm) Thyromental Distance: Greater than 3 cm Neck Range of Motion: Full ROM Neck Circumference: Normal Teeth Condition: Normal Dentition ASA Classification ASA Score: ASA 2 Emergency Case?: No NPO Status NPO Status: NPO Clears >2 hours, Solids >8 hours Status Status: Confirmed Anesthesia Plan Resuscitation Status: Full Code Anesthesia Technique: Epidural Anesthesia Airway Planned: Natural Airway Pain Management: Surgeon and patient request nerve block Monitors Used: Standard Monitors
[2021-02-27] MEDS: FentaNYL/ROPIvacaine 2 mcg/ml and 0.1% 200 ML CADD Cassette EP (20:19)
--- NOTE | 2021-02-27 20:32 | ANES.NEUR_ITS ---
Epidural/Spinal Catheter Date Performed: 02/27/21 Procedure Start: 19:52 Procedure Stop: 20:19 Requesting Provider: Adelia Hayden Procedure Location: Obstetrics Reason Performed: Labor Epidural Standard Monitors Applied: ECG, Blood Pressure and SpO2 Patient Position: Sitting Sedation Given (Indicate Dose Given): No Sedation given Patient Mental Status: Awake Sterility: Hand Hygiene, Surgical Cap, Surgical Mask, Sterile Gloves, Sterile Drape/Sheet and Chlorhexidine Procedure Location: L2-L3 Interspace Epidural Needle: Tuohy 17 Guage Needle Length: 3.5 Inch Needle Approach: Midline Epidural Procedure: Skin Prepped, Sterile Drape Placed, 1% Lidocaine to skin and subcutaneous tissue with 25G needle, Tuohy Needle placed, FERNANDO to Saline Used, Epidural Catheter Placed, Negative Heme, Negative CSF Flow and Tuohy Needle Removed Catheter Placed?: Catheter Placed Test Dose (Indicate Dose Given): 5ml 1.5% Lidocaine with 1:200K Epinephrine Given and Negative Test Dose Loss of Resistance Depth (cm): 8 Catheter depth at skin (cm): 15 Dressing: [place]orbaview Dressing Placed, Tegaderm Applied, Mastisol Used and Dressing reinforced with Tape Epidural Provider Bolus (Indicate Dose Given): Total Ropivacaine 0.1% with Fentanyl 2mcg/ml Given from pump (ml) Dose:: 10 mL Additives (Indicate Dose Given ): None Infusion Medication: Medication Infusion Began Medication Infus ion: Ropivacaine 0.1% with Fentanyl 2mcg/ml Maintenance Infusion Rate (ml/hour): 10 PCEA Bolus Dose (ml): 5 Block Level: T5 Paresthesia: None Ultrasound: Not Used Number of Attempts (See previous attempts in note section): 2 Procedure Tolerated: No Complications and Patient tolerated well Procedure Outcome: Successful Procedure Comment:: 1st attempt L2-L3 space, contacted bone. 2nd attempt 1 cm to the right in same space. Performed By: Bonita Herrera Supervised By: Gabriel Rodney
[2021-02-27] MEDS: Penicillin G POT. 3,000,000 UNITS in Normal Saline 50 ML 100 UNITS IVPB (22:09)
--- NOTE | 2021-02-27 22:30 | PGE_ITS ---
Date of service: 02/27/21 Time of Service: 22:30 Informed Consent Informed Consent: Augmentation of Labor and Regional Anesthesia Pelvic Exam Dilation: 4.5 Effacement (%): 80 station: -3 Cervix Position: mid Consistency: soft Vaginal Exam Presentation: Cephalic Contractions Monitor Mode: External Contraction Frequency(min): 4-6 Contraction Duration(sec): 50-70 Intensity: Moderate Fetus A Monitor: External (US) Heart Rate Baseline: 140 Variability: Moderate (6-25 BPM) Categories: Category I Accelerations: 15 X 15 Decelerations: None Amniotic Membrane Status: Ruptured Assessment and Plan Assessment and plan (1) Encounter for induction of labor: Status: Acute Assessment and plan: A: s/p effective epidural inadequate labor pattern category 1 tracing, 4-5/80% vtx -3 nursing placed lazo P: Begin pitocin augmentation Informed consent discussion with pt completed Dr. Christensen material handler floorperson and aware of pt status Adequate GBS prophylaxis Anticipate Objective Vital Signs Reviewed: Yes Objective Narrative Objective Narrative: 2nd dose of PCN infusing epidural placed and with good effect at 2100 minimal cervical change in 2 hrs pt resting well, vss category 1 tracing Subjective Interval history since last seen: Very comfortable since epidural was done, legs very heavy and numb. Interventions Pain Management Interventions: Epidural Epidural Placed by:: Gabriel Rodney ./ Augmentation , Pitocin rate (mU/min): 2 inadequate labor pattern after epidural in place . Results Hemoglobin/Hematocrit: Hgb 14.0 g/dL (11.2-15.7) 02/27/21 13:18 Hct 42.0 % (36.0-46.0) 02/27/21 13:18 Abnormal Lab Findings: Abnormal Labs 02/27/21 13:18 MCV 95.7 H MPV 11.6 H
[2021-02-27] MEDS: Oxytocin/Normal Saline 30 UNIT/500 ML BAG 2 UNITS IV (22:47)
[2021-02-27] MEDS: Lactated Ringers 1,000 ML 125 ML IV (22:53)
[2021-02-28] VITALS (87 sets, daily range): BP systolic 101–147; BP diastolic 55–80; PULSE 55–87; RESP 16; TEMP 36.8–37; O2SAT 96–100
[2021-02-28] MEDS: Penicillin G POT. 3,000,000 UNITS in Normal Saline 50 ML 100 UNITS IVPB (02:12)
--- NOTE | 2021-02-28 03:56 | NUR.NOTE ---
Nursing Note: at 0335 variables noted. Pt reported feeling rectal pressure and was agreeable to sve. SVE . SUNNI Hayden notified. POC to labor down. Pt agreeable. Pt turned to left side.
--- NOTE | 2021-02-28 04:19 | W.PM.OBNL1 ---
Date of service: 02/28/21 Time of Service: 04:19 Pelvic Exam Dilation: 10 Effacement (%): 100 station: +1 Position: MADELEINE Vaginal Exam Presentation: Cephalic Contractions Monitor Mode: External Contraction Frequency(min): 2-3 Intensity: Moderate/Strong Fetus A Monitor: External (US) Heart Rate Baseline: 145 Variability: Minimal (1-5 BPM) Categories: Category II Accelerations: Present Decelerations: Variable Amniotic Membrane Status: Ruptured Assessment and Plan Assessment and plan (1) Encounter for induction of labor: Status: Acute Assessment and plan: A: complete @ 0330; very relaxed and comfortable with epidural labored down to 0/+1 station; 2nd stage huddle @ 0400 category 2 due to periods of minimal variability and occasional variable 3rd dose of PCN infused Pitocin at 8 mu/min P: Begin pushing efforts w/coaching Anticipate Objective Vital Signs Reviewed: Yes Subjective Interval history since last seen: Epidural remains effective, beginning to feel some rectal pressure with contractions Results Hemoglobin/Hematocrit: Hgb 14.0 g/dL (11.2-15.7) 02/27/21 13:18 Hct 42.0 % (36.0-46.0) 02/27/21 13:18 Abnormal Lab Findings: Abnormal Labs 02/27/21 13:18 MCV 95.7 H MPV 11.6 H
[2021-02-28] MEDS: Oxytocin 10 UNITS/ML VIAL IM (05:10)
[2021-02-28] MEDS: miSOPROStol 200 MCG TAB 400 MCG SL (05:12)
[2021-02-28] MEDS: Methylergonovine 0.2 MG/ML VIAL (05:14)
--- NOTE | 2021-02-28 06:17 | W.OBDELIVERY ---
Date of service: 02/28/21 Time of Service: 06:17 OB Labor/ Delivery Information Baby A Delivery Delivery Method: Spontaneaous Presentation: Cephalic Cephalic Position: Vertex Vertex Position: Left Occipital Anterior Breech Position: N/A Cord Description-Baby A: 3 Vessels and Nuchal Cord (loose x1, reduced overhead) Amniotic Fluid: Clear Estimated Blood Loss: QBL 1050 see PPH summary Delivery Outcome: Liveborn Infant Transferred: Remains with Mother Providers Nurse Hypertrichologist: Adelia Hayden Blood Coordinator: Gabriel Rodney Spaghetti Machine Operator: Lani Palacios Nurse: Celi Masters Nurse: Pippa Cohen Labor/Delivery Information Number of Babies in Womb: 1 Steroids Given: None Reason Steroids Not Administered: N/A Group Beta Strep: Positive Antibiotics Administered: Yes Number of Doses of Antibiotics: 3 Rubella Status: Immune Blood Type: A- Varicella Immunity: Immune Maternal Complications: Hemorrhage Shoulder Dystocia: No Note: Pitocin augmentation up to 8 mu/min for adequate contraction pattern, 2nd stage huddle completed at which increased risk of PPH identified due to induction process, coached pushing efforts began @ 0412 with category 2 tracing from periodic variable decels which resolved quickly, periods of moderate variability continued. Once head was visible at the introitus, lazo cather was removed. after 45 minutes of maternal effort in semi-fowlers of a vigorous female infant, loose nuchal cord reduced overhead and shoulders came easily, bulb suctioned and stimulated on field then to mother's arms for further stim, drying and suction. Cord ceased pulsating at 2 minutes and was clamped then cut by FOB. Pitocin IV bolus begun, Lee Ann placenta delivered with gentle cord traction and was accompanied by a large gush of blood followed by brisk bright red bleeding. Bimanual compression applied immediately with vigorous fundal massage, IV pitocin rate increased and an additional 10 units given IM, misoprostel 600 mcg PO given to pt and methergine 0.2 mg IM given. Bleeding was fully controlled within 8-10 minutes from delivery of placenta. BP and maternal pulse remained stable throughout, pt kept in her arms tending to her under epidural anesthesia. First degree perineal laceration noted and repaired with 3.0 Vicryl, no other lacerations found upon introital, vaginal and cervical inspection. QBL calculated at 1050 ml, precautionary decision to give TXA made at 1 hr after delivery. Fundus remaining firm and rubra is min-mod. Apgars 8/9, weight 4040 gms. Review of events of PPH done with pt and her , they express understanding of situation and satisfaction with management procedures. Pt does not intend to breastfeed though she plans to pump breast milk, requested formula for first feed. Stages of Labor Onset of Labor Date: 02/27/21 Onset of Labor Time: 20:00 Complete Dilatation Date: 02/28/21 Complete Dilatation Time: 03:40 Labor - Stage 1 Duration: 24 hours and 0 minutes ROM Baby A: 02/27/21 ROM Baby A: 17:12 ROM Total Time- Baby A: [id number] Infant Delivery Date-Baby A: 02/28/21 Delivery Time-Baby A: 04:57 Labor Stage 2 Duration: 1 hours and 17 minutes Placenta Delivery Date-Baby A: 02/28/21 Placenta Delivery Time-Baby A: 05:07 Labor-Stage 3 Duration: 10 minutes Total Length of Labor-Baby A: 8 hours and 57 minutes Placenta Cultured: No Placenta Status: Delivered Baby A Gender: Female Gestational Status: Term (39-41.6 wks) Gestational Age in Weeks/Days: 40 Weeks and 3 Days weight: 8 lb 14.507 oz Weight Comment: 4040 gms Score-1 Minute Interval(Baby A) Heart Rate-1 minute: 100 BPM or Greater Respiratory Effort- 1 minute: Spontaneous/Strong Cry Muscle Tone-1 minute: Minimal Flexion/Extension Reflex Response-1 minute: Prompt Response Color-1 minute: Bluish Hands or Feet Total Score-1 minute: 8 Score-5 Minute Interval(Baby A) Heart Rate- 5 minute: 100 BPM or Greater Respiratory Effort-5 minute: Spontaneous/Strong Cry Muscle Tone-5 minute: Active Movement Reflex Response-5 minute: Prompt Response Color-5 minute: Bluish Hands or Feet Total Score- 5 minute: 9 Procedure Procedures: Control of Hemorrhage , See PPH template / Cord Blood Collection Interventions Repair of Laceration Type: Perineal , Laceration Extension: First Degree . Sponge Count Correct: No Sponges Placed in Vagina , Sharp Count Correct: Yes . Laceration Repair Note: 3.0 Vicryl under epidural anesthesia Hemorrrhage Note Note Note: Both nurses and Provider were at the bedside prior to delivery. Lazo catheter had been inserted after epidural anesthesia and had been removed immediately prior to . Increased risk for PPH had been identified and discussed in 2nd stage huddle 1 hour prior to delivery. Bleeding was controlled within 10 minutes of placenta delivery, pt remained hemostatic and asymptomatic throughout. Bedside light present in room with delivery table, QBL scale brought in when PPH recognized. Hemorrhage Recognized Date Hemorrhage Recognized: 02/28/21 Time Hemorrhage Recognized: 05:07 2nd RN in Room Date: 02/28/21 Time: 04:50 2nd RN: Pippa Cohen Provider in Room Date: 02/28/21 Time: 04:10 Provider: Adelia Hayden Lazo Catheter Inserted by: Had been draining well for several hours prior to delivery, removed @ [facility] Medication Administration 1st Administration: Medication: Oxytocin 30U/500ml IV Medication Other/Dose/Route: 167 Administration Date: 02/28/21 Administration Time: 05:00 2nd Administration: Medication: Other Medication Other/Dose/Route: 333 Administration Date: 02/28/21 Administration Time: 05:09 3rd Administration: Medication: Oxytocin 10U IM Medication Other/Dose/Route: IM 10U Administration Date: 02/28/21 Administration Time: 05:10 4th Administration: Medication: Other Medication Other/Dose/Route: Cytotec 600mcg PO Administration Date: 02/28/21 Administration Time: 05:12 5th Administration: Medication: Other Medication Other/Dose/Route: .2 IM Administration Date: 02/28/21 Administration Time: 05:14 6th Adminstration: Medication: TXA 1gm IV Medication Other/Dose/Route: 1gm IV Administration Date: 02/28/21 Administration Time: 05:49 Total Blood Loss for PPH Event Quantitative Blood Loss: 1,050 Bimanual Uterine Compression Date: 02/28/21 Time: 05:07
[2021-02-28] MEDS: Ondansetron 4 MG/2 ML VIAL IVP (06:29)
--- NOTE | 2021-02-28 10:28 | W.ANESPOSTOP ---
Postoperative Evaluation Date, Time and Location Date Performed: 02/28/21 Time Performed: 09:50 Patient Location: Obstetrics Vital Signs Most Recent Imported Vital Signs: Most Recent Vital Signs Temp Pulse Resp BP Pulse Ox 37.0 C 87 18 111/75 100 02/28/21 03:39 02/28/21 09:30 02/27/21 19:13 02/28/21 09:30 02/28/21 04:07 Assessment Mental Status: Awake (Alert & Oriented to Patient Baseline) Airway and Respiratory Function: Patent airway with normal (patient baseline) respiratory exam Cardiovascular Function: Hemodynamically Stable Hydration Status: Adequately Hydrated Nausea & Vomiting: No Nausea or Vomiting Pain: Pt. Denies Any Pain Peripheral Nerve Block: Patient did not receive a nerve block
[2021-02-28] MEDS: Ibuprofen 600 MG TAB PO ×2 (13:11→19:17)
[2021-03-01] MEDS: Ibuprofen 600 MG TAB PO (02:29)
[2021-03-01 06:55] LABS: HCT 34.7 % (36.0-46.0); HGB 11.5 g/dL (11.2-15.7); MCH 32.1 pg (27.0-33.0); MCHC 33.1 % (32.0-36.0); MCV 96.9 fL (80-95); MPV 11.3 fL (8.0-11.0); Platelet Count 104 10^3/uL (130-400); RBC 3.58 10^6/uL (3.93-5.22); RDW-SD 49.3 fL; WBC 10.02 10^3/uL (4.4-10.8)
[2021-03-01 08:15] VITALS: BP 105/64; PULSE 58; TEMP 36.6
--- NOTE | 2021-03-01 09:00 | DSE_ITS ---
Date of service: 03/01/21 Time of Service: 09:00 DS: Diagnosis Discharge Diagnosis (1) care following vaginal delivery: Start date: 03/01/21 Start time: 09:01 Status: Acute Asessment and Plan: doing own ADL's without difficulty. 1st degree perineal lac is healing well. Denies blues. Small lochia. will RTO 2 weeks or prn. KH (2) hemorrhage: Start date: 03/01/21 Start time: 09:02 Status: Acute Asessment and Plan: Hgb above 11.0 on PP day 1. Asymptomatic. RTO 2 weeks PP. KH Discharge Plan Disposition Patient Disposition: HOME Condition: Good Discharge Details Reason For Visit: Induction for Advanced Maternal Age at Term Admit Date/Time: 02/26/21 08:55 Admit Provider: Adelia Hayden Attending Provider: Adelia Hayden [facility] Course: Vaginal delivery on 02/28/21 early am, PPH of 1050cc with normal PP course and Hgb of 11.4 24 hours after. 1st degree laceration with repair. Bottle feeding and pumping some breast milk. Plans vasectomy for contraception. will RTO 2 and 6 weeks PP. Home Meds and New Rx's Prescriptions: Continued Multi 1 EACH tablet 1 ea PO DAILY RF: 0 Discharge Instructions Stand Alone Forms: BC Instructions, BC Post Vaginal Deliver Activity:: Activity as Tolerated Equipment/Supplies:: No Equipment Needed Diet:: As Tolerated Discharge Orders Discharge Orders: Discharge Order (Routine); Ordered 03/01/21 Ordered By: Louise Summers OB:DS Summary Summary Vaginal Delivery Method: Spontaneaous Episiotomy Description: Midline Laceration Description: Perineal Laceration Extension: First Degree complications OB DS: none Contraception Discussed Contraception Discussed: Yes Contraceptive Plan: Vasectomy, Infant Gender-Baby A: Female weight: 8 lb 14.507 oz Disposition of Baby A: Home Status at Discharge Functional status at discharge: independent ambulation Overall status at discharge: patient is back to baseline Mental Status: mental status grossly normal Speech and Movement: speech and movement normal Mood: congruent mood Affect: normal affect Time Spent with Patient providing and/or coordinating discharge services: Less than 30 minutes Quality: AMI Clinical Trial Participant: No Exam Physical Exam Vital signs: Temp Pulse Resp BP Pulse Ox 97.9 F 58 L 16 105/64 97 03/01/21 08:15 03/01/21 08:15 02/28/21 19:35 03/01/21 08:15 02/28/21 15:10 Vital Signs Reviewed: Yes Constitutional Constitutional: no acute distress and obese HEENT Exam HEENT Exam: Normal Neck Exam Neck Exam: Not Done Breast Exam normal: Breast Exam: Normal Nipple Exam: Normal Respiratory Exam Respiratory Exam: Normal Cardiovascular Exam Cardiovascular Exam: Normal Abdominal Exam Comments: normal Fundal Exam Fundus: Below Umbilicus and Firm Comment: small lochia Rectal Exam Rectal Exam: Hemmorhoids Comments: tender but uses aloe and witch helio with relief Exam Patient deferred: external exam Perineum: Normal Extremities Exam Extremity Exam: Normal Comment: left ankle slightly swollen, patient believes she turned her ankle Has full range of motion. Offered X ray, patient declines at this time but will follow up with PCP if persistent. KH Back/Spine/Pelvis Exam Back Exam: Not Done Skin Exam Skin Exam: Normal Neurological Exam Neurological Exam: Normal Psychiatric Exam Psychiatric Exam: Normal PFSH All Active Problems hemorrhage (Acute) care following vaginal delivery (Acute) Term delivered (Acute) hemorrhage, delivered, current hospitalization (Acute) Encounter for induction of labor (Acute) Positive GBS test (Acute) Advanced maternal age during (Acute) Rh negative state in antepartum period (Acute 05/19/17) Mass of left thigh (Acute) Medical History 11 weeks gestation of 40 weeks gestation of Amenorrhea Infertility Placenta previa Social History Smoking/Tobacco Use Status: Never Smoking risk assessment performed?: Yes Alcohol Intake: never Substance use type: does not use Household members: spouse current occupation: homemaker Pets and animals: Yes (2 dogs) Pets and animals: dog(s) Do you think of yourself as: straight/heterosexual Current gender identity: female Lee Ann/Jain: Yarsani Special lee ann needs: No Female Reproductive History Menstrual control method: none History History 2 Para 1 Hx # Term Pregnancies 1 Multiple births 0 Hx # Pregnancies 0 Ectopic pregnancies 0 AB induced 0 Hx Number of Living Children 1 AB spontaneous 0 Past Pregnancies Del. Date GA/Weeks # Outcome Route Wgt Sex Labor Lgth Anesthes ia Location Prov [facility] 12/17/17 40 No Successful vaginal 8 lb Male 24 hrs [facility] ([facility]) Delivery Date: 12/17/17 long labor but pushed only 1 hr, epidural, pit aug, heavy bleeding, 2nd degree tear, Storm Lyman; GBS treated with antibiotics. Louise Dixon DS: Data Vitals/I&O Vitals and I&O: Vital Signs Temperature 97.9 F 03/01/21 08:15 Temperature Source Oral 02/28/21 03:39 Pulse 58 L 03/01/21 08:15 Pulse Rhythm Regular 02/28/21 19:35 Respiratory Rate 16 02/28/21 19:35 Respiratory Depth Normal 02/28/21 19:35 Blood Pressure 105/64 03/01/21 08:15 Blood Pressure Mean 77 03/01/21 08:15 Pulse Oximetry 97 02/28/21 15:10 Pain Level 3 02/28/21 19:35 Intake & Output 02/28/21 02/28/21 03/01/21 11:59 23:59 11:59 Intake Total 214.649 / 2311.479 0027.584 / 1608.233 100 / 100 Output Total 1055 / 1305 250 / 1305 Balance -840.351 / 413.409 6398.584 / 303.233 100 / 100 Intake: IV 214.649 / 0913.950 8508.584 / 1608.233 100 / 100 Output: Urine 1000 / 1250 250 / 1250 Blood 55 / 55 Other: Urine Color Yellow Dark Red Data Completed and Pending Labs on day of discharge: Labs from last 24 hours 03/01/21 06:42 WBC 10.02 RBC 3.58 L Hgb 11.5 D Hct 34.7 L MCV 96.9 H MCH 32.1 MCHC 33.1 RDW 14.0 Plt Count 104 L MPV 11.3 H
== END 2021-03-01 12:45 | disposition home or self-care (01) | DRG 806 ==
PROVIDERS: Admitting Provider Advanced Practice Midwife; PCP Nurse Practitioner Family; Visit Provider Advanced Practice Midwife
DX: O36.0930 Maternal care for other rhesus isoimmunization, third trimester, not applicable or unspecified (principal); O72.0 Third-stage hemorrhage; Z37.0 Single live birth; O99.824 Streptococcus B carrier state complicating childbirth; O70.0 First degree perineal laceration during delivery; Z3A.40 40 weeks gestation of pregnancy
CPT/HCPCS: 36415; 85027; 86850; 86900; 86901; 87635; J2210; J2405; J2540; J2590; J3490

== ENCOUNTER 2021-04-11 10:30 | Outpatient (REF) | payer OTHER, SELFPAY ==
--- NOTE | 2021-04-11 09:30 | PAPFT_PTH ---
PATIENT: Christina Jones LOC: [facility] U#:[id number] AGE/SX: 45/F ROOM: RE04/11/[address]: Louise Dixon : 1975 BED: DIS: 04/11/2021 SPEC #: [id number] RECD: 04/11/21 12:52 STATUS: JARONJody REStephania #: [id number] ANGELIC: 04/11/21 09:[address]: Louise Dixon DEPT: [facility] Cytology RECD BY: Emma Sampson ENTERED: 04/11/21 12:52 SP TYPE: PAPFT MANJIT DR: Karen Calixto Tissues: 1 - CX/ENDOCX FOR PAP SMEARS Procedures: PAP THIN PREP/UVM Screening HPV DNA PROBE Comments: [id number]
== END 2021-04-11 10:31 | disposition home or self-care (01) ==
LOC: LBN 10:30
PROVIDERS: PCP Nurse Practitioner Family; Visit Provider Advanced Practice Midwife
DX: Z12.4 Encounter for screening for malignant neoplasm of cervix (principal); Z11.51 Encounter for screening for human papillomavirus (HPV)
CPT/HCPCS: 88142; 87624

== ENCOUNTER 2021-05-30 01:49 | Outpatient (CLI) | payer OTHER, SELFPAY ==
--- NOTE | 2021-05-30 06:00 | DI.MAMMO_ITS ---
Exam(s) MAMMO SCREENING EXAM: MAMMO SCREENING CLINICAL HISTORY: screening,z12.39. TECHNIQUE: Bilateral full field digital CC and MLO mammographic images were obtained with 3D tomosyn thesis and utilizing computer aided detection (CAD). COMPARISON: Prior mammograms were reviewed, the most recent being April 2019.. Ultrasound April 2019 was reviewed FINDINGS: There has been no significant change in the appearance and distribution of the fibroglandular tissue. There are no new spiculated masses nor malignant appearing microcalcification groups. There is no significant architectural distortion nor skin thickening-retraction. IMPRESSION: No radiographic evidence of malignancy. BI-RADS Category 1 - Negative Breast Density - Category B - Scattered areas of fibroglandular density Breast density Category C or D implies that the patient has dense breast tissue. Dense breast tissue can make it harder to find cancer on a mammogram. Dense breast tissue is also associated with an incr eased risk of breast cancer. This information about the result of the mammogram report was provided to the patient to raise their awareness. Use this report when you speak with the patient about their risks for breast cancer, which includes their family history. At that time, you may recommend additional screening tests (Ultrasoun d or MRI) as these tests may add significant information. A negative radiographic report should not delay biopsy if a dominant or clinically suspicious mass is present. Up to ten percent of cancers are not identified on mammography. A negative report may reinforce clinical impression. Adenosis and dense breasts may obscure an underlying neoplasm. False positive reports average 6 to 10%. Patient will receive a letter notifying them of these results.
== END 2021-05-30 02:09 ==
PROVIDERS: PCP Nurse Practitioner Family; Visit Provider Advanced Practice Midwife
DX: Z12.31 Encounter for screening mammogram for malignant neoplasm of breast (principal)
CPT/HCPCS: 77063; 77067

== ENCOUNTER 2022-08-14 16:24 | Outpatient (REF) | payer OTHER, SELFPAY ==
[2022-08-14 14:27] LABS: HCT 46.3 % (36.0-46.0); HGB 15.9 g/dL (11.2-15.7); MCH 31.1 pg (27.0-33.0); MCHC 34.3 % (32.0-36.0); MCV 91 fL (80-95); MPV 11.6 fL (8.0-11.0); Platelet Count 199 10^3/uL (130-400); RBC 5.11 10^6/uL (3.93-5.22); RDW-SD 40.2 fL; WBC 5.69 10^3/uL (4.4-10.8)
[2022-08-14 14:34] LABS: ALT 24 U/L (14-59); AST 22 U/L (15-37); Alkaline Phosphatase 76 U/L (46-116); Anion Gap 6.3 mmol/L (3-11); BUN 14 mg/dL (7-18); Bilirubin, Total 0.6 mg/dL (0.2-1.0); CO2 29.7 mmol/L (21.0-32.0); CREATININE 0.8 mg/dL (0.55-1.02); Calcium 8.8 mg/dL (8.5-10.1); Calculated LDL 150 mg/dL (<100); Chloride 106 mmol/L (98-107); Cholesterol 232 mg/dL (<200); Estimated GFR 92.54 (mL/min/1.73m2); Glucose 94 mg/dL (74-106); HDL Cholesterol 71 mg/dL (40-60); Potassium 4.3 mmol/L (3.5-5.1); Sodium 142 mmol/L (136-145); Total Protein 7.5 g/dL (6.4-8.2); Triglyceride 55 mg/dL (<150)
== END 2022-08-14 16:25 | disposition home or self-care (01) ==
LOC: NCHCN 16:24
PROVIDERS: PCP Nurse Practitioner Family; Visit Provider Nurse Practitioner Family
DX: Z00.00 Encounter for general adult medical examination without abnormal findings (principal); Z13.0 Encounter for screening for diseases of the blood and blood-forming organs and certain disorders involving the immune mechanism; Z13.228 Encounter for screening for other metabolic disorders; Z13.220 Encounter for screening for lipoid disorders
CPT/HCPCS: 80053; 80061; 85027

== ENCOUNTER 2022-08-28 02:46 | Outpatient (CLI) | payer OTHER, SELFPAY ==
--- NOTE | 2022-08-28 | DI.MAMMO_ITS ---
Exam(s) MAMMO SCREENING EXAM: MAMMO SCREENING CLINICAL HISTORY: SCREENING, Z12.39. TECHNIQUE: Bilateral full field digital CC and MLO mammographic images were obtained with 3D tomosyn thesis and utilizing computer aided detection (CAD). COMPARISON: Prior mammograms were reviewed. FINDINGS: There has been no significant change in the appearance and distribution of the fibroglandular tissue. There are no new spiculated masses nor malignant appearing microcalcification groups. There is no significant architectural distortion nor skin thickening-retraction. IMPRESSION: No radiographic evidence of malignancy. BI-RADS Category 1 - Negative Breast Density - Category B - Scattered areas of fibroglandular density Breast density Category C or D implies that the patient has dense breast tissue. Dense breast tissue can make it harder to find cancer on a mammogram. Dense breast tissue is also associated with an incr eased risk of breast cancer. This information about the result of the mammogram report was provided to the patient to raise their awareness. Use this report when you speak with the patient about their risks for breast cancer, which includes their family history. At that time, you may recommend additional screening tests (Ultrasoun d or MRI) as these tests may add significant information. A negative radiographic report should not delay biopsy if a dominant or clinically suspicious mass is present. Up to ten percent of cancers are not identified on mammography. A negative report may reinforce clinical impression. Adenosis and dense breasts may obscure an underlying neoplasm. False positive reports average 6 to 10%. Patient will receive a letter notifying them of these results.
== END 2022-08-28 03:06 ==
LOC: DI 02:47
PROVIDERS: PCP Nurse Practitioner Family; Visit Provider Nurse Practitioner Family
DX: Z12.31 Encounter for screening mammogram for malignant neoplasm of breast (principal)
CPT/HCPCS: 77063; 77067

== ENCOUNTER 2022-11-27 16:21 | Outpatient (REF) | payer OTHER, SELFPAY ==
[2022-11-27 16:03] LABS: HCG Qual (Serum) Negative
[2022-11-27 16:24] LABS: TSH 2.57 uIU/mL (0.36-3.74)
== END 2022-11-27 16:22 | disposition home or self-care (01) ==
LOC: NCHCN 16:21
PROVIDERS: PCP Nurse Practitioner Family; Visit Provider Nurse Practitioner Family
DX: N91.2 Amenorrhea, unspecified (principal)
CPT/HCPCS: 84443; 84703

== ENCOUNTER → 2023-10-15 01:03 | Outpatient (CLI) | payer OTHER, SELFPAY ==
--- NOTE | 2023-10-15 | DI.MAMMO_ITS ---
Exam(s) MAMMO SCREENING EXAM: MAMMO SCREENING CLINICAL HISTORY: SCREENING MAMMO Z12.39 TECHNIQUE: Mammograms were interpreted according to the usual protocol including computer analysis w [employer] CAD system, tomosynthesis and C-view imaging. COMPARISON: 2019 through 2022 FINDINGS: The breasts are composed of scattered fibroglandular densities, Breast Density category B. No suspicious masses or suspicious microcalcifications are seen. No skin thickening or abnormal axillary lymph nodes are seen. There has been no significant change from prior exams. IMPRESSION: BI-RADS Category 1, Negative mammogram Yearly screening mammography is recommended. Breast Density - Category B, scattered fibroglandular densities. A negative radiographic report should not delay biopsy if a dominant or clinically suspicious mass is present. Up to ten percent of cancers are not identified on mammography. A negative report may reinforce clinical impression. Adenosis and dense breasts may obscure an underlying neoplasm. False positive reports average 6 to 10%. Patient will receive a letter notifying them of these results.
== END ==
PROVIDERS: PCP Nurse Practitioner Family; Visit Provider Nurse Practitioner Family
DX: Z12.39 Encounter for other screening for malignant neoplasm of breast (principal); Z12.31 Encounter for screening mammogram for malignant neoplasm of breast
CPT/HCPCS: 77063; 77067

== ENCOUNTER 2024-10-06 12:00 | Outpatient (REF) | payer OTHER, SELFPAY ==
[2024-10-06 15:19] LABS: HCT 44.4 % (36.0-46.0); HGB 15.3 g/dL (11.2-15.7); MCH 31.5 pg (27.0-33.0); MCHC 34.5 % (32.0-36.0); MCV 92 fL (80-95); MPV 12.3 fL (8.0-11.0); Platelet Count 176 10^3/uL (130-400); RBC 4.85 10^6/uL (3.93-5.22); RDW 12.4 % (11.7-14.6); RDW-SD 41.6 fL; WBC 5.35 10^3/uL (4.4-10.8)
[2024-10-06 15:33] LABS: ALT 32 U/L (14-59); AST 24 U/L (15-37); Albumin 3.7 g/dL (3.4-5.0); Alkaline Phosphatase 80 U/L (46-116); Anion Gap 7.9 mmol/L (3-11); BUN 13 mg/dL (7-18); Bilirubin, Total 0.6 mg/dL (0.2-1.0); CO2 28.1 mmol/L (21.0-32.0); Calcium 8.8 mg/dL (8.5-10.1); Calculated LDL 141 mg/dL (<100); Chloride 106 mmol/L (98-107); Cholesterol 222 mg/dL (<200); Estimated GFR 91.40 (mL/min/1.73m2); Glucose 91 mg/dL (74-106); HDL Cholesterol 70 mg/dL (>or=50); Potassium 3.9 mmol/L (3.5-5.1); Sodium 142 mmol/L (136-145); Total Protein 6.7 g/dL (6.4-8.2); Triglyceride 57 mg/dL (<150)
== END 2024-10-06 12:01 | disposition home or self-care (01) ==
LOC: NCHCN 12:00
PROVIDERS: PCP Nurse Practitioner Family; Visit Provider Nurse Practitioner Family
DX: Z00.00 Encounter for general adult medical examination without abnormal findings (principal)
CPT/HCPCS: 80053; 80061; 85027

== ENCOUNTER 2024-10-27 01:27 | Outpatient (CLI) | payer OTHER, SELFPAY ==
--- NOTE | 2024-10-27 | DI.MAMMO_ITS ---
Exam(s) MAMMO SCREENING EXAM: MAMMO SCREENING CLINICAL HISTORY: Screening, Z12.31 TECHNIQUE: Bilateral full field digital CC and MLO mammographic images were obtained with 3D tomosynthesis and utilizing computer aided detection (CAD). COMPARISON: Comparison is made with prior examinations. FINDINGS: Masses/Architectural Distortion: No suspicious masses or areas of architectural distortion are present. Microcalcifications: No suspicious pleomorphic-type are seen. Skin Thickening/Nipple Retraction: None. IMPRESSION: 1. No significant interval change with no specific features of malignancy noted. 2. Unless there is more urgent need, screening mammography is recommended, as per [place] [employer] guidelines. BI-RADS Category 1 - Negative Breast Density - Category B - There are scattered areas of fibroglandular density. Breast density Category C or D implies that the patient has dense breast tissue. Dense breast tissue can make it harder to find cancer on a mammogram. Dense breast tissue is also associated with an increased risk of breast cancer. This information about the result of the mammogram report was provided to the patient to raise their awareness. Use this report when you speak with the patient about their risks for breast cancer, which includes their family history. At that time, you may recommend additional screening tests (Ultrasound or MRI) as these tests may add significant information. A negative radiographic report should not delay biopsy if a dominant or clinically suspicious mass is present. Up to ten percent of cancers are not identified on mammography. A negative report may reinforce clinical impression. Adenosis and dense breasts may obscure an underlying neoplasm. False positive reports average 6 to 10%. Patient will receive a letter notifying them of these results.
== END 2024-10-27 01:47 ==
LOC: DI 01:27
PROVIDERS: PCP Nurse Practitioner Family; Visit Provider Nurse Practitioner Family
DX: Z12.31 Encounter for screening mammogram for malignant neoplasm of breast (principal); R92.323 Mammographic fibroglandular density, bilateral breasts
CPT/HCPCS: 77063; 77067